=== PATIENT | female | born 1990 | race Caucasian/White ===

== ENCOUNTER 2016-03-28 17:42 | Day surgery (SDC) | payer SELFPAY ==
[~2016-03-28] VITALS: Ht 172.7 cm; Wt 83.2 kg
[2016-03-28] MEDS ORDERED: ADIPEX-P37.5 MG PO (17:53)
[2016-03-28 18:47] LABS: BASO # 0.1 (0.0-0.2); BASO % 0.3 % (0.0-2.0); EOS % 0.2 % (0-4.0); GRAN # 16.6 (1.4-6.5); HEMOGLOBIN 15.2 g/dl (12.5-16.0); LYMPH # 1.4 (1.2-3.4); LYMPH % 7.6 % (20.0-51.0); MEAN CELL VOLUME 84 fl (80.0-100.0); MEAN CORPUSCULAR HEMOGLOBIN 29 pg (27.0-31.0); MEAN CORPUSCULAR HGB CONC 35 g/dl (33.0-37.0); MEAN PLATELET VOLUME 9.6 fl (7.4-10.4); MONO # 0.2 (0.1-0.6); MONO % 1.2 % (1.7-9.3); PLATELET COUNT 275 K/mm3 (130-400); RED BLOOD COUNT 5.26 M/mm3 (4.10-5.30); REDCELL DISTRIBUTION WIDTH-CV 13.1 % (11.5-14.5); WHITE BLOOD COUNT 18.4 K/mm3 (4.8-10.8)
[2016-03-28 18:49] LABS: PH 6 (5-8); URINE APPEARANCE Hazy; URINE BACTERIA Rare /hpf; URINE BILIRUBIN Negative (NEGATIVE); URINE BLOOD 2+ (NEGATIVE); URINE COLOR Amber; URINE GLUCOSE Negative (NEGATIVE); URINE KETONE 2+ (NEGATIVE); URINE UROBILINOGEN Negative (NEGATIVE); URINE WBC >50 /hpf
[2016-03-28 18:52] LABS: ADJUSTED CALCIUM 9.3 mg/dL (8.4-10.2); BILIRUBIN,TOTAL 1.5 mg/dL (0.0-1.0); CALCIUM 10.1 mg/dL (8.4-10.2); CREATININE, serum 0.53 mg/dL (0.52-1.25); POTASSIUM 3.4 mmol/L (3.4-5.0); TOTAL PROTEIN 8.7 gm/dL (6.4-8.2)
[2016-03-28 21:50] VITALS: BP 100/55; PULSE 80
[2016-03-28 22:05] VITALS: BP 92/65; PULSE 84
[2016-03-28 22:20] VITALS: BP 93/61; PULSE 88
[2016-03-28 22:35] VITALS: BP 103/63; PULSE 91
[2016-03-28 23:05] VITALS: BP 91/65; PULSE 86
[2016-03-28 23:35] VITALS: BP 109/62; PULSE 78; TEMP 98.5
[2016-03-29 00:35] VITALS: BP 114/73; PULSE 85
[2016-03-29 00:42] VITALS: BP 93/61; PULSE 78; TEMP 98.2
[2016-03-29 01:35] VITALS: BP 103/55; PULSE 83
[2016-03-29 04:58] VITALS: BP 100/50; PULSE 85; TEMP 98.4
[2016-03-29] MEDS ORDERED: NORCO 325 MG-7.1 TAB PO (09:10)
[2016-03-29 09:19] VITALS: BP 102/52; PULSE 83; TEMP 98.5
== END 2016-03-29 10:05 | disposition home or self-care (01) ==
LOC: COL.ER 17:42 → SDCO 20:16 → SURG 21:50 → SDCO 03-29 10:05
PROVIDERS: Emergency Medicine
DX: K35.3 Acute appendicitis with localized peritonitis (principal)
CPT/HCPCS: OP; J2270; J2405; J2704; J3010; J7030; J7120; Q9967

== ENCOUNTER 2020-12-17 14:11 | Inpatient (IN) | payer OTHER ==
[2020-12-17] VITALS (10 sets, daily range): BP systolic 123–143; BP diastolic 60–86; PULSE 77–101; TEMP 97.8–99
[~2020-12-17] VITALS: Ht 152.5 cm; Wt 98.6 kg
[~2020-12-17 14:11] MED LIST: ADIPEX-P37.5 MG PO; IBU600 MG PO; NORCO 325 MG-7.1 TAB PO; PRENATAL PO; TUMS500 MG PO
[2020-12-17 14:52] LABS: BASO % 0.2 % (0.0-2.0); EOS # 0.1 K/mm3 (0.0-0.7); EOS % 0.5 % (0-4.0); GRAN # 9.9 K/mm3 (1.4-6.5); GRAN % 74.9 % (42.2-75.2); HEMOGLOBIN 12.2 g/dl (12.5-16.0); LYMPH # 2.4 K/mm3 (1.2-3.4); LYMPH % 17.8 % (20.0-51.0); MEAN CELL VOLUME 80 fl (80.0-100.0); MEAN CORPUSCULAR HEMOGLOBIN 27 pg (27.0-31.0); MEAN CORPUSCULAR HGB CONC 33 g/dl (33.0-37.0); MEAN PLATELET VOLUME 9.6 fl (7.4-10.4); MONO # 0.8 K/mm3 (0.1-0.6); MONO % 5.8 % (1.7-9.3); PLATELET COUNT 318 K/mm3 (130-400); RED BLOOD COUNT 4.55 M/mm3 (4.10-5.30); REDCELL DISTRIBUTION WIDTH-CV 15.2 % (11.5-14.5)
[2020-12-17 14:53] LABS: HEMATOCRIT 36.5 % (37.0-47.0)
--- NOTE | 2020-12-17 15:42 | NUR ---
PATIENT TO LR6. PATIENT COMPLAINS OF PRESSURE AND LEAKING OF FLUID. PATIENT CHECKED BY BETH. VALENTIN. PATIENT 7 AND RUPTURED. WATER BROKE AT 1230. BOYFRIEND AT BEDSIDE ON EFM, ASSESMENT COMPLETE, IV STARTED, CONSENTS SIGNED. SVE BY DR LANG AT 1515. TO MOTHERS CHEST IN CARE OF BARBIE FERNÁNDEZ. PLACENTA SPON DELIVERED AT 1520. PITOCCIN AT 333 MLS/ HR. FUNDAL MASSAGE PROVIDED. 2ND DEGREE REAPIRED BY DR LANG. ICE PACK TO PERINEUM. RECOVERY STARTED AT 1530
--- NOTE | 2020-12-17 17:10 | NUR ---
PATIENT AMBULATED OUT OF BED TO BATHROOM, MONTSERRAT CARE PROVIDED, NEW GOWN, UNDIES, ICE PACK PROVIDED, AMBULATED TO 208 TO NEW ROOM PATIENT URINATED DURING DELIVERY
[2020-12-18 00:45] VITALS: BP 124/73; PULSE 84; TEMP 98.3
[2020-12-18 04:25] VITALS: BP 112/58; PULSE 65; TEMP 98
[2020-12-18 07:00] VITALS: BP 102/68; PULSE 76; TEMP 98.2
[2020-12-18] MEDS ORDERED: MOTRIN 800800 MG/TAB PO (08:42)
[2020-12-18 15:56] VITALS: BP 114/68; PULSE 76; TEMP 98.2
== END 2020-12-18 16:22 | disposition home or self-care (01) | DRG 807 ==
LOC: LDRO 14:11 → OB 14:32 → LDR 14:32 → OB 17:10
PROVIDERS: Obstetrics & Gynecology; ADMIT Obstetrics & Gynecology
PROC: 10E0XZZ Delivery of Products of Conception, External Approach (ICD-10-PCS; principal; 2020-12-17)
PROC: 0KQM0ZZ Repair Perineum Muscle, Open Approach (ICD-10-PCS; 2020-12-17)
DX: O99.02 Anemia complicating childbirth (principal); Z37.0 Single live birth; D64.9 Anemia, unspecified; O99.62 Diseases of the digestive system complicating childbirth; K21.9 Gastro-esophageal reflux disease without esophagitis; O70.1 Second degree perineal laceration during delivery; Z3A.39 39 weeks gestation of pregnancy
CPT/HCPCS: J2590; J7120